=== PATIENT | male | born 1990 | race Caucasian/White ===

== ENCOUNTER 2017-05-09 00:16 | Emergency (ER) | payer BC ==
[2017-05-09] MEDS ORDERED: Lidocaine Viscous Sol 2% 15 ml UD Cup ONE ×2 (00:30→01:10)
[2017-05-09] MEDS ORDERED: Mag-Al Plus 1200 MG/1200 MG/120 MG/30 ML UDCUP ONE ×2 (00:30→01:10)
== END 2017-05-09 01:24 | disposition home or self-care (01) ==
LOC: BURERS 00:16
DX: K29.00 Acute gastritis without bleeding (principal); I10 Essential (primary) hypertension; Z87.891 Personal history of nicotine dependence
CPT/HCPCS: 99283